=== PATIENT | female | born 1955 | race Caucasian/White ===

== ENCOUNTER 2019-11-02 20:08 | Emergency (ER) | payer OTHER ==
[~2019-11-02] VITALS: Ht 152.4 cm; Wt 90.7 kg
[2019-11-02 20:13] VITALS: Ht 152.4 cm; Wt 90.7 kg
[2019-11-02 20:58] VITALS: BP 165/100
== END 2019-11-02 20:58 | disposition home or self-care (01) ==
LOC: ED 20:08
DX: B02.9 Zoster without complications (principal)